=== PATIENT | male | born 1985 | race Caucasian/White ===

== ENCOUNTER 2017-11-30 05:46 | Inpatient (IN) | payer MEDICAID ==
[2017-11-30] MEDS ORDERED: Dextrose 5%-Lactated Ringers 1,000 ML IV SCH (07:30)
[2017-11-30] MEDS ORDERED: Pantoprazole 40 MG Vial IVPUSH SCH (07:30)
--- NOTE | 2017-11-30 08:17 | PCM.HP ---
H&P History of Present Illness - General Date of Service: 11/30/17 Admit Problem/Dx: Admission Diagnosis/Problem Admission Diagnosis/Problem Abdominal pain Source of Information: Patient History Limitations: Reports: No Limitations - History of Present Illness Initial Comments - Free Text/Narative: Pastor states that he developed postprandial abdominal pain starting on Friday. Pain gradually increased and went into the ED last night. [facility] his primary procedure. Pastor has been taking all of his vitamins and supplements. Recently got and moved to [place] and it has been about 1 year since he had his vitamin levels checked. Most recent surgery was in 2016 for a bowel obstruction and internal hernia. Operative Report from [place] is coming. Onset of Symptoms: Reports: Today Location: Reports: Abdomen (left upper quadrant ) Quality: Reports: Ache, Pressure, Throbbing Severity: Severe Improves with: Reports: Medication (Dilaudid when he got to the ED ) Context: Reports: Sick Contact Associated Symptoms: Reports: Loss of Appetite, Nausea/Vomiting Abdominal Pain Score (Numeric/FACES): 7 - Related Data Allergies/Adverse Reactions: Allergies Allergy/AdvReac Type Severity Reaction Status Date / Time No Known Allergies Allergy Verified 11/30/17 05:52 Home Medications: Home Meds Calcium Citrate 2 tab PO DAILY 11/30/17 [History] Cyanocobalamin (Vitamin B12) [Vitamin B12] 1 tab PO DAILY 11/30/17 [History] Ferrous Sulfate [Iron] 1 tab PO DAILY 11/30/17 [History] Multivitamin [Multivitamins] 1 tab PO DAILY 11/30/17 [History] Vitamin B Complex & Vit C No.4 [Super B Complex] 1 tab PO DAILY 11/30/17 [ History] Past Medical History Cardiovascular History: Reports: Hypertension Respiratory History: Reports: Asthma Gastrointestinal History: Reports: Bowel Obstruction, Chronic Diarrhea Other Gastrointestinal History: hx of Gastric Bypass; wt loss 175 pounds Genitourinary History: Reports: Renal Calculus Musculoskeletal History: Reports: Fracture Neurological History: Reports: Concussion, Head Trauma, Speech Problems, Vertigo Psychiatric History: Reports: Addiction, Anxiety, Eating Disorders, Psych Hospitalization(s), PTSD, Suicide Attempt, Suicidal Ideation Other Psychiatric History: night terrors, past suicide attempt Endocrine/Metabolic History: Reports: Obesity/BMI 30+ Hematologic History: Reports: B12 Deficiency - Past Surgical History HEENT Surgical History: Reports: Adenoidectomy, Tonsillectomy Other HEENT Surgeries/Procedures: [place] tooth pulled 10/10/14 GI Surgical History: Reports: Bariatric Procedure, Other (See Below) Other GI Surgeries/Procedures: revision 2016 in [facility] Male Surgical History: Reports: Lithotripsy (ESWL), Renal Calculus Social & Family History - Family History Family Medical History: Noncontributory Oncologic: Reports: Colon - Tobacco Use Smoking Status *Q: Former Smoker Years of Tobacco use: 19 Used Tobacco, but Quit: No Second Hand Smoke Exposure: Yes - Caffeine Use Caffeine Use: Reports: Coffee, Tea - Recreational Drug Use Recreational Drug Use: No - Living Situation & Occupation Living situation: Reports: Single, Other Occupation: Employed H&P Review of Systems - Review of Systems: Review Of Systems: ROS reveals no pertinent complaints other than HPI. Exam - Exam Exam: See Below - Vital Signs Vital Signs: Last Vital Signs Temp 96.3 F 11/30/17 07:27 Pulse 69 11/30/17 07:27 Resp 16 11/30/17 07:27 BP 119/86 11/30/17 07:27 Pulse Ox 99 11/30/17 07:27 Weight: 203 lb - Exam Quality Assessment: DVT Prophylaxis General: Alert, Moderate Distress HEENT: PERRLA Neck: Supple, Trachea Midline Lungs: Clear to Auscultation, Normal Respiratory Effort Cardiovascular: Regular Rate, Regular Rhythm GI/Abdominal Exam: Guarding, Tender (in right and left upper quadrants) (Male) Exam: Deferred Rectal (Males) Exam: Deferred Back Exam: Normal Inspection, Full Range of Motion Extremities: Normal Inspection Skin: Warm, Dry, Intact Neurological: Cranial Nerves Intact, Reflexes Equal Bilateral Neuro Extensive - Mental Status: Alert, Oriented x3, Normal Mood/Affect, Memory Intact Neuro Extensive - Motor, Sensory, Reflexes: CN II-XII Intact, Normal Reflexes Psychiatric: Alert, Normal Affect - Problem List (1) Partial small bowel obstruction SNOMED Code(s): 037486899 ICD Code: K56.600 - PARTIAL INTESTINAL OBSTRUCTION, UNSPECIFIED TO CAUSE Status: Acute Current Visit: Yes Problem List Initiated/Reviewed/Updated: Yes Orders Last 24hrs: Active Orders 24 hr Category Date Time Status Patient Status [ADT] Routine ADT 11/30/17 07:06 Active Ondansetron [Zofran] Med 11/30/17 07:20 Active 4 mg IVPUSH Q4H PRN cefOXitin [Mefoxin] 2 gm Med 11/30/17 08:02 Ordered Sodium Chloride 0.9% [Normal Saline] 50 ml IV ONETIME Medication Orders Cefoxitin Sodium 2 gm/ Sodium (Chloride) 50 mls @ 100 mls/hr IV ONETIME ONE Stop: 11/30/17 08:31 Ondansetron HCl (Zofran) 4 mg IVPUSH Q4H PRN PRN Reason: Nausea/Vomiting Assessment/Plan Comment:: Admit to Inpatient Discussed case with Rod Arteaga MD See copy of his orders Leonela Morrell 11/30/17
[2017-11-30] MEDS ORDERED: Lactated Ringers 1,000 ML IV SCH (08:30)
[2017-11-30] MEDS ORDERED: Succinylcholine 200 MG/10 ML MDV ONE (09:08)
[2017-11-30] MEDS ORDERED: Dexamethasone 4 MG/ML SDV ONE (09:08)
[2017-11-30] MEDS ORDERED: Ondansetron 4 MG/2 ML SDV ONE (09:08)
[2017-11-30] MEDS ORDERED: Propofol 200 MG/20 ML SDV ONE (09:08)
[2017-11-30] MEDS ORDERED: Glycopyrrolate 0.2 MG/ML 5 ML MDV ONE (09:08)
[2017-11-30] MEDS ORDERED: Rocuronium 50 MG/5 ML Vial ONE (09:08)
[2017-11-30] MEDS ORDERED: Neostigmine Methylsulfate 1 MG/ML 5 ML Syringe ONE (09:08)
[2017-11-30] MEDS ORDERED: fentaNYL 250 MCG/5 ML SDV ONE ×2 (09:08)
[2017-11-30] MEDS ORDERED: HYDROmorphone 1 MG/ML Syringe IVPUSH ONE (10:12)
[2017-11-30] MEDS ORDERED: Naloxone 0.4 MG/ML SDV IVPUSH PRN (10:21)
[2017-11-30] MEDS: HYDROmorphone/Normal Saline 15 MG/30 ML PCA IV PRN (11:00)
[2017-11-30] MEDS: cefOXitin 2 GM in Sodium Chloride 0.9% 50 ML IV ONE ×2 (11:13→11:21)
[2017-11-30] MEDS: D5 1/2 NS w/ 20 mEq/L KCl 1,000 ML IV SCH ×2 (11:28→19:36)
[2017-11-30] MEDS: Ondansetron 4 MG/2 ML SDV IVPUSH PRN (19:37)
[2017-12-01] MEDS: D5 1/2 NS w/ 20 mEq/L KCl 1,000 ML IV SCH ×3 (03:06→21:16)
[2017-12-01] MEDS: HYDROmorphone/Normal Saline 15 MG/30 ML PCA IV PRN ×2 (04:05→22:10)
--- NOTE | 2017-12-01 08:04 | PN ---
DATE OF SERVICE: 12/01/2017 SUBJECTIVE: The patient is postop day one. He had a laparotomy yesterday. He reports his pain is controlled. He has been n.p.o. requesting to have something to eat or drink. He has been up ambulating. Ledezma catheter put out 4100 of a clear reuben urine. REVIEW OF SYSTEMS: Remainder of review of systems is negative for any pertinent positives and negatives. OBJECTIVE: GENERAL: The patient is a 32-year-old male. VITAL SIGNS: TPR is 97.3, 72, 16, blood pressure is 113/78. HEENT: Negative. NECK: Supple. HEART: Regular rate and rhythm. LUNGS: Clear. ABDOMEN: Dressings dry and intact. Abdominal binder is on. EXTREMITIES: Without peripheral edema. ASSESSMENT: Exploratory laparotomy, status post Luis Fernando-en-Y gastric bypass surgery. PLAN: Discontinue Ledzema catheter dressing off, may shower. Consult the [facility] step 3 gastric bypass diet. Tylenol 1000 mg q.i.d. to start today. Dulcolax 10 mg p.o. b.i.d. and to discontinue after patient having a bowel movement, Celebrex 200 mg p.o. daily, Colace 100 mg p.o. b.i.d., magnesium sulfate 2 g IV q.6 hours x72 hours, D5 half normal saline with 20 mEq KCl decreased to 100 mL per hour at noon today. Good pulmonary toilet. We will evaluate p.r.n. or in a.m. Leonela Sales PA-C /[id number]
--- NOTE | 2017-12-01 08:10 | OR ---
DATE OF PROCEDURE: 11/30/2017 PREOPERATIVE DIAGNOSES: 1. Status post Luis Fernando-en-Y gastric bypass. 2. Small bowel obstruction. POSTOPERATIVE DIAGNOSIS: 1. Status post Luis Fernando-en-Y gastric bypass. 2. Alcazar internal hernia. PROCEDURE PERFORMED: Exploratory laparotomy, reduction of Alcazar internal hernia, and closure of the mesenteric defect. ANESTHESIA: General endotracheal. INDICATION: This 32-year-old white male is a few years status post Luis Fernando-en-Y gastric bypass. About a year and a half ago, he had an internal hernia, which was treated in [place] with reduction and closure. Four days ago, he presented to the emergency room in [place], [place], where he lives, with studies suggestive apparently of some edema, but it was felt that everything should resolve. He was released from the emergency room and went home. He said pain developed and became worse causing him again to come to the emergency room last night at about 2300 hours. CAT scan at this time shows mesenteric swirling and suggestion of an internal hernia. He was referred up here, as a former bariatric patient. I counseled him for exploratory laparotomy with repair or removal of any damaged or diseased organs or tissues, and he gave us informed consent to proceed. DESCRIPTION OF PROCEDURE: After adequate general endotracheal anesthesia was obtained, a Ledezma catheter was placed. The leg compression stockings were in place and used during the entire procedure. A time-out was held. An upper midline incision was made through his existing scar. We extended this a little inferiorly into [place] tissue. This was carried deep using Bovie cautery to the fascia. The fascia was incised inferiorly and the underlying peritoneum was elevated and incised to enter the abdomen. There were no adhesions to the anterior abdominal wall. We opened the fascia to the length of the skin incision using Bovie cautery while protecting underlying structures. We delivered the small bowel up out of the abdomen and discovered a Alcazar hernia with essentially his entire small bowel going underneath the Luis Fernando-en-Y limb. This was all reduced back into the abdomen. The hernia defect was then closed with running stitches of 2-0 silk. All looked well. The abdomen was irrigated and suctioned dry. The fascia was closed with a running stitch of #2 Vicryl. The incision was again irrigated and suctioned dry. Skin unique were placed to approximate the skin. A sterile dressing was applied. The anesthesia was reversed. He was extubated and brought to the recovery room in good condition. Rod Arteaga MD /[id number]
[2017-12-01] MEDS: Bisacodyl 5 MG Tab PO SCH ×2 (08:29→21:16)
[2017-12-01] MEDS: Celecoxib 200 MG Cap PO SCH (08:29)
[2017-12-01] MEDS: Acetaminophen 500 MG Tab PO SCH ×3 (08:29→21:16)
[2017-12-01] MEDS: Magnesium Sulfate/Water 2 GM in Premix Bag 1 BAG IV SCH ×3 (08:30→21:16)
[2017-12-01] MEDS: Docusate Sodium 100 MG Cap PO SCH ×2 (08:30→21:16)
[2017-12-01] MEDS: Enoxaparin 40 MG/0.4 ML Syringe SUBCUT SCH (18:34)
[2017-12-02] MEDS: Magnesium Sulfate/Water 2 GM in Premix Bag 1 BAG IV SCH ×3 (02:50→14:20)
[2017-12-02] MEDS: Acetaminophen 500 MG Tab PO SCH ×4 (02:50→19:42)
[2017-12-02] MEDS ORDERED: Ondansetron 4 MG Tab.DIS PO PRN (07:05)
[2017-12-02] MEDS: HYDROmorphone 2 MG Tab PO PRN ×4 (07:55→22:15)
[2017-12-02] MEDS: Bisacodyl 5 MG Tab PO SCH (08:03)
[2017-12-02] MEDS: Docusate Sodium 100 MG Cap PO SCH ×2 (08:03→21:24)
[2017-12-02] MEDS: Celecoxib 200 MG Cap PO SCH (08:04)
--- NOTE | 2017-12-02 08:17 | PN ---
DATE OF SERVICE: 12/02/2017 SUBJECTIVE: The patient is postoperative day 2. Vital signs have been stable. He has been up ambulating. Pain is controlled. Oral intake 1460. Urine output 1725. He has been voiding without difficulty after his Ledezma catheter has been removed. REVIEW OF SYSTEMS: Remainder of review of systems is negative for any pertinent positives and negatives. OBJECTIVE: GENERAL: The patient is a 32-year-old male. VITAL SIGNS: TPR 96.3, 57, 14, blood pressure 122/67. HEENT: Negative. NECK: Supple. HEART: Regular rate and rhythm. LUNGS: Clear. ABDOMEN: Dressings dry and intact. Abdominal binder is on. EXTREMITIES: Without peripheral edema. ASSESSMENT: Exploratory laparotomy, reduction of Alcazar internal hernia and closure of mesenteric defect for status post Luis Fernando-en-Y gastric bypass surgery and Nieves internal hernia. PLAN: 1. 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 Dilaudid 2 mg 1 to 2 every 4 hours p.r.n. pain. Good pulmonary toilet. 2. We will evaluate p.r.n. or in a.m. 3. Plan discharge in a.m. Leonela Sales PA-C /[id number]
[2017-12-02] MEDS ORDERED: Cyanocobalamin (Vitamin B12) 1,000 MCG/ML SDV IM ONE (08:30)
[2017-12-02] MEDS: Ondansetron 4 MG/2 ML SDV IVPUSH PRN (12:01)
[2017-12-02] MEDS ORDERED: Bisacodyl 10 MG Supp RECTAL SCH (16:05)
[2017-12-02] MEDS: Enoxaparin 40 MG/0.4 ML Syringe SUBCUT SCH (18:12)
[2017-12-02] MEDS ORDERED: hydrOXYzine HCl 100 MG/2 ML SDV IM PRN (21:35)
[2017-12-02] MEDS ORDERED: hydrOXYzine HCl 25 MG Tab PO PRN (21:36)
[2017-12-03] MEDS: Acetaminophen 500 MG Tab PO SCH ×2 (02:56→08:47)
[2017-12-03] MEDS: HYDROmorphone 2 MG Tab PO PRN (02:56)
--- NOTE | 2017-12-03 08:22 | DISCH ---
ADMISSION DIAGNOSES: Abdominal pain status post Luis Fernando-en-Y gastric bypass surgery, unspecified surgical malabsorption, B12 deficiency, history of alcohol abuse, history of drug abuse, depression disorder, impaired glucose tolerance, anxiety, dysthymia and PTSD. DISCHARGE DIAGNOSES: Exploratory laparotomy, reduction of Alcazar internal hernia and closure of mesenteric defect for SP Luis Fernando-en-Y gastric bypass surgery and Alcazar internal hernia. Date of surgery 11/30/2017. Surgeon, Rod Arteaga MD. HISTORY: Pastor Ham is a 32-year-old male who presented to [facility] ED for abdominal pain. He was found to have a partial small bowel obstruction and was transferred by ambulance to [facility]. After preoperative evaluation and discussion of possible risks and possible complications, he wished to proceed with surgical procedure. HOSPITAL COURSE: Pastor had his surgery on 11/30/2017. He had no operative complications. On postoperative day #1, he was started on step-3 gastric bypass diet. His Ledezma catheter was discontinued. He was started on bowel stimulation. Magnesium was replaced. 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 He was started on Dilaudid. He did have a bowel movement. Pain was controlled. Activity was good. Received dietary instruction. He was able to be discharged to home on 12/03/2017. PHYSICAL EXAMINATION: GENERAL: Pastor Ham is a 32-year-old male. VITAL SIGNS: Height is 5 feet 11 inches. Weight is 203 pounds. BMI is 28. TPR is 95.2, 54, 14, and blood pressure 118/71. HEENT: Negative. NECK: Supple. HEART: Regular rate and rhythm. LUNGS: Clear. ABDOMEN: Dada intact. Abdominal binder is on. EXTREMITIES: Without peripheral edema. DISPOSITION: Discharged to home. CONDITION: Stable and improving. FOLLOWUP: Followup appointment on 12/10/2017 at 1 p.m. HOME MEDICATIONS: 1. Tylenol 1000 mg oral q.6 hours p.r.n. pain. 2. Celebrex 200 mg p.o. daily #14. 3. Colace 100 mg oral b.i.d., #100. 4. Dilaudid 2 mg 1 to 2 q.4 hours p.r.n. pain #30. 5. Increase multivitamin to b.i.d. 6. He is to continue his home medications which include ferrous sulfate 1 tablet daily and B complex 1 tablet oral daily. Vitamins will be reviewed at the time of his first postoperative appointment. DISCHARGE DIET: Diet after discharge, step-3 gastric bypass diet for 2 weeks. Drink 8 to 10 glasses of water a day. ACTIVITY: No lifting greater than 10 pounds for 6 weeks. Other activity, walk at least 6 times a day, distance and time as tolerated. Driving, do not drive while on narcotic pain medication. Shower/bathing, may shower. DISCHARGE INSTRUCTIONS: Notify provider if any fever, pain, nausea, vomiting. Keep site clean and dry. Wear abdominal binder for 6 weeks and then as tolerated. Use incentive spirometer 10 times every hour while awake.
[2017-12-03 08:46] VITALS: BP 115/75
[2017-12-03] MEDS: Celecoxib 200 MG Cap PO SCH (08:47)
[2017-12-03] MEDS: Docusate Sodium 100 MG Cap PO SCH (08:47)
== END 2017-12-03 10:00 | disposition home or self-care (01) | DRG 354 ==
LOC: JP.ED 05:46 → JP.2SS 07:06
PROVIDERS: ADMIT Surgery; ATTEND Surgery
PROC: 0DQV0ZZ Repair Mesentery, Open Approach (ICD-10-PCS; principal; 2017-11-30)
PROC: 0WQF0ZZ Repair Abdominal Wall, Open Approach (ICD-10-PCS; 2017-11-30)
DX: K46.9 Unspecified abdominal hernia without obstruction or gangrene (principal); K56.600 Partial intestinal obstruction, unspecified as to cause; K91.2 Postsurgical malabsorption, not elsewhere classified; Z98.84 Bariatric surgery status; Z98.0 Intestinal bypass and anastomosis status; E53.8 Deficiency of other specified B group vitamins; Z87.891 Personal history of nicotine dependence; F10.11 Alcohol abuse, in remission; F19.10 Other psychoactive substance abuse, uncomplicated; F32.9 Major depressive disorder, single episode, unspecified; F41.9 Anxiety disorder, unspecified; R73.01 Impaired fasting glucose; F34.1 Dysthymic disorder; F43.10 Post-traumatic stress disorder, unspecified; Z91.5 Personal history of self-harm; Z86.79 Personal history of other diseases of the circulatory system; Z87.09 Personal history of other diseases of the respiratory system
CPT/HCPCS: 36415; 80048; 80053; 82306; 82525; 82607; 82728; 82746; 83735; 84100; 84443; 84590; 84630; 85027; 94762; 99285; A9270-GY; J0330; J0694; J1100; J1170; J1650; J2405; J2704; J2710; J3010; J3420; J3475; J3480; J3490; J7050

== ENCOUNTER 2020-07-25 19:54 | Emergency (ER) | payer BC, MEDICAID ==
[2020-07-25] MEDS ORDERED: Acetaminophen 650 MG Supp RECTAL ONE (20:11)
[2020-07-25] MEDS ORDERED: Lactated Ringers 1,000 ML IV ONE (20:11)
[2020-07-25] MEDS ORDERED: Ondansetron 4 MG/2 ML SDV IVPUSH ONE (20:12)
[2020-07-25] MEDS ORDERED: HYDROmorphone 0.5 MG/0.5 ML Syringe IVPUSH ONE (20:16)
--- NOTE | 2020-07-25 20:21 | EDM.PDOC ---
ED HPI GENERAL MEDICAL PROBLEM - General Chief Complaint: General Stated Complaint: PERSONAL Time Seen by Provider: 07/25/20 20:15 Source of Information: Reports: Patient, Old Records - History of Present Illness INITIAL COMMENTS - FREE TEXT/NARRATIVE: 35 yo male recently moved back to [place] after being away for some years. He does not yet have a primary care provider. Today he is most concerned with L ear pain and a reddish lump on the lateral side of his L knee. His girlfriend had the same thing recently. It recently drained. Onset: Gradual Duration: Day(s): Quality: Reports: Dull Severity: Mild Improves with: Reports: None Worsens with: Reports: None Context: Reports: Other (See HPI) Associated Symptoms: Reports: Other (L ear pain) Treatments PROCUREMENT INTERN: Reports: Other (see below) (none) Generalized Pain Score (Numeric/FACES): 8 - Related Data Allergies Allergy/AdvReac Type Severity Reaction Status Date / Time No Known Allergies Allergy Verified 11/30/17 05:52 Home Meds: Home Meds Calcium Citrate 2 tab PO DAILY 11/30/17 [History] Cyanocobalamin (Vitamin B12) [Vitamin B12] 1 tab PO DAILY 11/30/17 [History] Ferrous Sulfate [Iron] 1 tab PO DAILY 11/30/17 [History] Vitamin B Complex Vit C No.4 [Super B Complex] 1 tab PO DAILY 11/30/17 [History] Acetaminophen [Tylenol Extra Strength] 1,000 mg PO Q6H tablet 12/03/17 [Rx] Celecoxib [CeleBREX] 200 mg PO DAILY #14 cap 12/03/17 [Rx] Docusate Sodium [Colace] 100 mg PO BID #100 cap 12/03/17 [Rx] HYDROmorphone [Dilaudid] 2 - 4 mg PO Q4H PRN #30 tablet 12/03/17 [Rx] Multivitamin [Multivitamins] 1 tab PO BID #0 12/03/17 [Rx] Past Medical History Cardiovascular History: Reports: Hypertension Respiratory History: Reports: Asthma Gastrointestinal History: Reports: Bowel Obstruction, Chronic Diarrhea Other Gastrointestinal History: hx of Gastric Bypass; wt loss 175 pounds Genitourinary History: Reports: Renal Calculus Musculoskeletal History: Reports: Fracture Neurological History: Reports: Concussion, Head Trauma, Speech Problems, Vertigo Psychiatric History: Reports: Addiction, Anxiety, Eating Disorders, Psych Hospitalization(s), PTSD, Suicide Attempt, Suicidal Ideation Other Psychiatric History: night terrors, past suicide attempt Endocrine/Metabolic History: Reports: Obesity/BMI 30+ Hematologic History: Reports: B12 Deficiency - Past Surgical History HEENT Surgical History: Reports: Adenoidectomy, Tonsillectomy Other HEENT Surgeries/Procedures: [place] tooth pulled 10/10/14 GI Surgical History: Reports: Bariatric Procedure, Other (See Below) Other GI Surgeries/Procedures: revision 2016 in [facility] Male Surgical History: Reports: Lithotripsy (ESWL), Renal Calculus Social & Family History - Family History Family Medical History: No Pertinent Family History Oncologic: Reports: Colon - Caffeine Use Caffeine Use: Reports: Coffee, Tea - Living Situation & Occupation Living situation: Reports: Single, Other Occupation: Employed ED ROS GENERAL - Review of Systems Review Of Systems: See Below Constitutional: Reports: No Symptoms HEENT: Reports: Ear Pain (left) Respiratory: Reports: No Symptoms Cardiovascular: Reports: No Symptoms GI/Abdominal: Reports: No Symptoms : Reports: No Symptoms Musculoskeletal: Reports: No Symptoms Skin: Reports: Lumps (reddish lump to the lateral side of his L knee) Neurological: Reports: No Symptoms ED EXAM, GENERAL - Physical Exam Exam: See Below Exam Limited By: No Limitations General Appearance: Alert, WD/WN, No Apparent Distress Eye Exam: Bilateral Eye: Normal Inspection Ears: Normal External Exam, Normal Canal, Hearing Grossly Normal, Normal TMs. No: Hearing Loss Ear Exam: Bilateral Ear: Auricle Normal, Canal Normal, TM normal Nose: Normal Inspection, No Blood Throat/Mouth: Normal Lips, Normal Voice, No Airway Compromise Head: Atraumatic, Normocephalic Neck: Normal Inspection Respiratory/Chest: No Respiratory Distress, No Accessory Muscle Use Neurological: Alert, Oriented, CN II-XII Intact, No Motor/Sensory Deficits Psychiatric: Normal Affect, Normal Mood Skin Exam: Warm, Dry, Intact, No Rash, Erythema (there is a reddish lesion about 2.5 cm in diameter to the lateral side of his L knee. It is slightly indurated. Not hot to touch. Not fluctuant. No current drainage. ). No: Increased Warmth Course - Vital Signs Last Recorded V/S: Last Vital Signs Temp 36.2 C 07/25/20 20:32 Pulse 107 H 07/25/20 20:32 Resp 16 07/25/20 20:32 BP 146/104 H 07/25/20 20:32 Pulse Ox 96 07/25/20 20:32 - Orders/Labs/Meds Orders: Active Orders 24 hr Category Date Time Status Lactated Ringers [Ringers, Lactated] 1,000 ml Med 07/25/20 20:11 Active IV BOLUS Medication Orders Lactated Ringer's (Ringers, Lactated) 1,000 mls @ 1,000 mls/hr IV BOLUS ONE Stop: 07/25/20 21:10 Meds: Medications Generic Name Dose Route Start Last Admin Trade Name Freq PRN Reason Stop Dose Admin Lactated Ringer's 1,000 mls @ 1,000 mls/hr 07/25/20 20:11 Ringers, Lactated IV 07/25/20 21:10 BOLUS ONE Discontinued Medications Generic Name Dose Route Start Last Admin Trade Name Freq PRN Reason Stop Dose Admin Acetaminophen 650 mg 07/25/20 20:11 Acetaminophen 650 Mg Supp RECTAL 07/25/20 20:12 NOW ONE Hydromorphone HCl 0.5 mg 07/25/20 20:16 Hydromorphone 0.5 Mg/0.5 Ml Syringe IVPUSH 07/25/20 20:17 ONETIME ONE Ondansetron HCl 4 mg 07/25/20 20:12 Ondansetron 4 Mg/2 Ml Sdv IVPUSH 07/25/20 20:13 ONETIME ONE Departure - Departure Time of Disposition: 21:01 Disposition: Home, Self-Care 01 Condition: Good Clinical Impression: Skin infection - Discharge Information *PRESCRIPTION DRUG MONITORING PROGRAM REVIEWED*: Not Applicable *COPY OF PRESCRIPTION DRUG MONITORING REPORT IN PATIENT HERMINIO: Not Applicable Referrals: PCP,None [Primary Care Provider] - Forms: ED Department Discharge Additional Instructions: Your skin lesion on your left knee may have been MRSA. It looks like you are successfully healing it without antibiotics. Applying moist heat and keeping it clean with soap and water will further speed resolution. Recheck if it worsens. Get established with a personal provider in the clinic soon. Sepsis Event Note (ED) - Focused Exam Vital Signs: Vital Signs Temp Pulse Resp BP Pulse Ox 07/25/20 20:32 36.2 C 107 H 16 146/104 H 96 07/25/20 20:29 36.2 C 107 H 16 146/104 H 96 - My Orders Last 24 Hours: My Active Orders 07/25/20 20:11 Lactated Ringers [Ringers, Lactated] 1,000 ml IV BOLUS - Assessment/Plan Last 24 Hours: My Active Orders 07/25/20 20:11 Lactated Ringers [Ringers, Lactated] 1,000 ml IV BOLUS
[2020-07-25 20:31] VITALS: BP 146/104; PULSE 107
== END 2020-07-25 21:09 | disposition home or self-care (01) ==
LOC: JP.ED 19:54
DX: L08.9 Local infection of the skin and subcutaneous tissue, unspecified (principal); I10 Essential (primary) hypertension; J45.909 Unspecified asthma, uncomplicated; E66.9 Obesity, unspecified; Z68.30 Body mass index [BMI] 30.0-30.9, adult; Z79.899 Other long term (current) drug therapy
CPT/HCPCS: 99282; 99283

== ENCOUNTER 2020-08-03 15:51 | Emergency (ER) | payer MEDICAID ==
[2020-08-03 16:11] VITALS: BP 138/91; PULSE 98
--- NOTE | 2020-08-03 16:54 | EDM.PDOCBH ---
ED HPI GENERAL MEDICAL PROBLEM - General Chief Complaint: Drug or Alcohol Abuse Stated Complaint: ASSESSMENT TO ADMIT TO DETOX Time Seen by Provider: 08/03/20 16:15 Source of Information: Reports: Patient, Family History Limitations: Reports: No Limitations - History of Present Illness INITIAL COMMENTS - FREE TEXT/NARRATIVE: 35-year-old male with chronic alcoholism, presents for medical clearance to detox out at [facility]. He has already called [facility] and they agreed to take him if he was cleared. He has no specific complaints. He does not remember the last time he went a day without drinking. His last alcohol was just prior to coming in. He does not appear to be overly intoxicated. Onset: Unknown/Unsure Duration: Chronic Associated Symptoms: Reports: Other (Feeling somewhat anxious but no other symptoms) - Related Data Allergies Allergy/AdvReac Type Severity Reaction Status Date / Time No Known Allergies Allergy Verified 08/03/20 16:11 Home Meds: Home Meds NK [No Known Home Meds] 08/03/20 [History] Past Medical History Cardiovascular History: Reports: Hypertension Respiratory History: Reports: Asthma Gastrointestinal History: Reports: Bowel Obstruction, Chronic Diarrhea Other Gastrointestinal History: hx of Gastric Bypass; wt loss 175 pounds Genitourinary History: Reports: Renal Calculus Musculoskeletal History: Reports: Fracture Neurological History: Reports: Concussion, Head Trauma, Speech Problems, Vertigo Psychiatric History: Reports: Addiction, Anxiety, Eating Disorders, Psych Hospitalization(s), PTSD, Suicide Attempt, Suicidal Ideation Other Psychiatric History: night terrors, past suicide attempt Endocrine/Metabolic History: Reports: Obesity/BMI 30+ Hematologic History: Reports: B12 Deficiency - Infectious Disease History Infectious Disease History: Reports: Chicken Pox - Past Surgical History HEENT Surgical History: Reports: Adenoidectomy, Tonsillectomy Other HEENT Surgeries/Procedures: [place] tooth pulled 10/10/14 GI Surgical History: Reports: Bariatric Procedure, Other (See Below) Other GI Surgeries/Procedures: revision 2016 in [facility] Male Surgical History: Reports: Lithotripsy (ESWL), Renal Calculus Social & Family History - Family History Family Medical History: No Pertinent Family History Oncologic: Reports: Colon - Tobacco Use Tobacco Use Status *Q: Never Tobacco User - Caffeine Use Caffeine Use: Reports: None - Alcohol Use Days Per Week of Alcohol Use: 7 Number of Drinks Per Day: 8 Total Drinks Per Week: 56 Date of Last Drink: 08/03/20 - Recreational Drug Use Recreational Drug Use: Yes Recreational Drug Type: Reports: Methamphetamine Recreational Drug Use Frequency: Daily - Living Situation & Occupation Living situation: Reports: Single, Other Occupation: Employed ED ROS GENERAL - Review of Systems Review Of Systems: See Below Constitutional: Denies: Fever, Chills HEENT: Reports: No Symptoms Respiratory: Denies: Shortness of Breath, Cough Cardiovascular: Denies: Chest Pain, Palpitations GI/Abdominal: Denies: Abdominal Pain, Diarrhea, Nausea, Vomiting Skin: Reports: No Symptoms Neurological: Denies: Headache Psychiatric: Reports: Anxiety ED EXAM, BEHAVIORAL HEALTH - Physical Exam Exam: See Below Exam Limited By: No Limitations General Appearance: Alert, No Apparent Distress, Other (Very cooperative) Eye Exam: Bilateral Eye: Normal Inspection Head: Atraumatic Neck: Non-Tender Respiratory/Chest: Lungs Clear Cardiovascular: Regular Rate, Rhythm. No: Tachycardia GI/Abdominal: Non-Tender Extremities: Normal Inspection Neurological: Alert, Oriented x 3 Psychiatric: Flat Affect Skin Exam: Warm, Dry COURSE, BEHAVIORAL HEALTH COMP - Course Vital Signs: Last Vital Signs Temp 97.3 F 08/03/20 16:06 Pulse 98 08/03/20 16:06 Resp 18 08/03/20 16:06 BP 138/91 H 08/03/20 16:06 Pulse Ox 97 08/03/20 16:06 Orders, Labs, Meds: Laboratory Tests 08/03/20 08/03/20 08/03/20 Range/Units 16:22 16:22 16:30 Urine Opiates Screen Negative (NEGATIVE) Ur Oxycodone Screen Negative (NEGATIVE) Urine Methadone Screen Negative (NEGATIVE) Ur Propoxyphene Screen Negative (NEGATIVE) Ur Barbiturates Screen Negative (NEGATIVE) Ur Tricyclics Screen Negative (NEGATIVE) Ur Phencyclidine Scrn Negative (NEGATIVE) Ur Amphetamine Screen Presumptive positive H (NEGATIVE) U Methamphetamines Scrn Presumptive positive H (NEGATIVE) Urine MDMA Screen Presumptive positive H (NEGATIVE) U Benzodiazepines Scrn Negative (NEGATIVE) U Cocaine Metab Screen Negative (NEGATIVE) U Marijuana (THC) Screen Negative (NEGATIVE) Ethyl Alcohol 190 mg/dL SARS CoV-2 RNA Rapid JEMMA Negative Re-Assessment/Re-Exam: EtOH, urine drug screen and Covid were obtained. Plans to have the patient transferred to [facility] by his mother who accompanies him. EtOH was 0.190, urine drug screen was positive for methamphetamine. Otherwise patient was stable and willing to go to detox, he will be transferred by his mom. Departure - Departure Time of Disposition: 17:35 Disposition: DC/Tfer to Other 70 Clinical Impression: Polysubstance abuse - Discharge Information Instructions: Substance Use Disorder Referrals: PCP,None [Primary Care Provider] - Forms: ED Department Discharge Care Plan Goals: Go through detox as planned and follow-up post detox instructions or seek further treatment to avoid further abuse of alcohol and other substances. Sepsis Event Note (ED) - Evaluation Sepsis Screening Result: No Definite Risk
== END 2020-08-03 17:35 | disposition other institution (70) ==
LOC: JP.ED 15:51
DX: F19.10 Other psychoactive substance abuse, uncomplicated (principal); I10 Essential (primary) hypertension; E66.9 Obesity, unspecified; Z68.30 Body mass index [BMI] 30.0-30.9, adult; Z20.822 Contact with and (suspected) exposure to COVID-19
CPT/HCPCS: 36415; 80305-QW; 80307; 99284; U0002

== ENCOUNTER 2020-08-14 13:58 | Emergency (ER) | payer MEDICAID ==
[2020-08-14 14:24] VITALS: BP 128/77; PULSE 101
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
== END 2020-08-14 15:05 | disposition home or self-care (01) ==
LOC: JP.ED 13:58
DX: K62.5 Hemorrhage of anus and rectum (principal); R30.0 Dysuria; J45.909 Unspecified asthma, uncomplicated; I10 Essential (primary) hypertension; E66.9 Obesity, unspecified; Z68.29 Body mass index [BMI] 29.0-29.9, adult
CPT/HCPCS: 36415; 80048; 80305-QW; 81001; 85025; 85651; 99283

== ENCOUNTER 2020-08-30 13:38 | Emergency (ER) | payer MEDICAID ==
[2020-08-30 13:49] VITALS: BP 120/75; PULSE 104
== END 2020-08-30 14:05 | disposition left against medical advice (07) ==
LOC: JP.ED 13:38
DX: Z53.21 Procedure and treatment not carried out due to patient leaving prior to being seen by health care provider (principal)

== ENCOUNTER 2020-09-01 21:12 | Emergency (ER) | payer MEDICAID ==
[2020-09-01] MEDS ORDERED: Etomidate 2 MG/ML 10 ML SDV IVPUSH ONE (21:21)
[2020-09-01] MEDS ORDERED: Rocuronium 50 MG/5 ML Vial IVPUSH ONE (21:21)
[2020-09-01] MEDS ORDERED: Sodium Chloride 0.9% 10 ML Syringe FLUSH PRN (21:23)
[2020-09-01] MEDS ORDERED: Rocuronium 50 MG/5 ML Vial ONE (21:23)
[2020-09-01] MEDS ORDERED: Etomidate 2 MG/ML 10 ML SDV ONE (21:26)
[2020-09-01] MEDS ORDERED: propofoL 100 ML ONE (21:40)
--- NOTE | 2020-09-01 21:49 | EDM.PDOC ---
ED HPI GENERAL MEDICAL PROBLEM - General Chief Complaint: Drug or Alcohol Abuse Stated Complaint: EVAL Time Seen by Provider: 09/01/20 21:14 Source of Information: Reports: Patient History Limitations: Reports: Altered Mental Status (Patient is unresponsive) - History of Present Illness INITIAL COMMENTS - FREE TEXT/NARRATIVE: Primo is a 35-year-old male who collapsed outside of the emergency room. A rapid response was called. The patient was apparently being brought in by a friend for evaluation of intoxication, ingestion of nortriptyline, and ingestion of methamphetamine. The patient has a longstanding history of polysubstance abuse including alcohol, opiates, methamphetamine, and today also took an unknown amount of nortriptyline. The patient again is unresponsive and not answering questions appropriately. He was brought back to stabilization room 9 emergently. Unfortunately, her lab is experiencing failure of the analyzer making evaluation of the patient near impossible. With this in mind we initiated rapid transfer of the patient to [facility]. - Related Data Allergies Allergy/AdvReac Type Severity Reaction Status Date / Time No Known Allergies Allergy Verified 08/30/20 13:50 Home Meds: Home Meds Sulfamethoxazole/Trimethoprim [Sulfamethoxazole-Tmp Ss Tablet] 1 each PO BID 08/30/20 [History] Past Medical History Cardiovascular History: Reports: Hypertension Respiratory History: Reports: Asthma Gastrointestinal History: Reports: Bowel Obstruction, Chronic Diarrhea Other Gastrointestinal History: hx of Gastric Bypass; wt loss 175 pounds Genitourinary History: Reports: Renal Calculus Musculoskeletal History: Reports: Fracture Neurological History: Reports: Concussion, Head Trauma, Speech Problems, Vertigo Psychiatric History: Reports: Addiction, Anxiety, Eating Disorders, Psych Hospitalization(s), PTSD, Suicide Attempt, Suicidal Ideation Other Psychiatric History: night terrors, past suicide attempt Endocrine/Metabolic History: Reports: Obesity/BMI 30+ Hematologic History: Reports: B12 Deficiency - Infectious Disease History Infectious Disease History: Reports: Chicken Pox - Past Surgical History HEENT Surgical History: Reports: Adenoidectomy, Tonsillectomy Other HEENT Surgeries/Procedures: [place] tooth pulled 10/10/14 GI Surgical History: Reports: Bariatric Procedure, Other (See Below) Other GI Surgeries/Procedures: revision 2016 in [facility] Male Surgical History: Reports: Lithotripsy ([facility]), Renal Calculus Social & Family History - Family History Family Medical History: No Pertinent Family History Oncologic: Reports: Colon - Caffeine Use Caffeine Use: Reports: None - Living Situation & Occupation Living situation: Reports: Single, Other Occupation: Employed ED ROS GENERAL - Review of Systems Review Of Systems: Unable To Obtain Reason Not Obtained: Patient is unresponsive ED EXAM, GENERAL - Physical Exam Exam: See Below Exam Limited By: Altered Mental Status (Patient responds to painful stimuli) General Appearance: Obtunded Eye Exam: Bilateral Eye: PERRL Throat/Mouth: Normal Oropharynx Head: Atraumatic, Normocephalic Neck: Normal Inspection Respiratory/Chest: No Respiratory Distress, Lungs Clear, Normal Breath Sounds Cardiovascular: Normal Peripheral Pulses, Regular Rate, Rhythm, Tachycardia Peripheral Pulses: 2+: Radial (L), Radial (R), Posterior Tibial (L), Posterior Tibial (R) GI/Abdominal: Normal Bowel Sounds Extremities: Normal Inspection Neurological: Other (Patient responds to painful stimuli, GCS of 8) Skin Exam: Warm, Dry Lymphatic: No Adenopathy ED GENERAL MEDICAL PROCEDURES - Endotracheal Intubation Time of Intubation: 21:30 ET Intubation Indication: Airway Protection Preparation: Suction, Balloon Tested, BVM Set Up, Difficult Airway Equip Pre-Oxygenation: Assisted with BVM, 100% FiO2 Anesthesia Meds: Etomidate, Rocuronium Placement: Orotracheal, Cuffed Cords Visualized: Yes ETT Size In mm: 8.5 (24 cm at the teeth) Number of Attempts: 1 Confirmed By: CO2 Indicator, Bilateral Breath Sounds, Chest Xray Tube Secured By: By Provider #1 Interpretation EKG Date: 09/01/20 Time: 21:17 Rhythm: NSR Rate (Beats/Min): 99 [place]: Normal P-Wave: Present QRS: Normal ST-T: Normal QT: Normal Comparison: NA - No Prior EKG Course - Vital Signs Last Recorded V/S: Last Vital Signs Temp 35.5 C L 09/01/20 21:15 Pulse 103 H 09/01/20 21:26 Resp 22 H 09/01/20 21:26 BP 115/71 09/01/20 21:26 Pulse Ox 93 L 09/01/20 21:15 - Orders/Labs/Meds Orders: Active Orders 24 hr Category Date Time Status Ledezma Catheter Insertion [Insert Urinary Catheter] [OM. Care 09/01/20 21:30 Ordered PC] Q24H Urinary Catheter Assessment [RC] ASDIRECTED Care 09/01/20 21:24 Active Chest 1V Frontal [CR] Stat Exams 09/01/20 21:54 Ordered Chest 1V Frontal [CR] Stat Exams 09/01/20 21:55 Ordered Chest 1V Frontal [CR] Stat Exams 09/01/20 21:56 Ordered Sodium Chloride 0.9% [Saline Flush] Med 09/01/20 21:23 Active 10 ml FLUSH ASDIRECTED PRN Saline Lock Insert [OM.PC] Routine Oth 09/01/20 21:23 Ordered Medication Orders Sodium Chloride (Sodium Chloride 0.9% 10 Ml Syringe) 10 ml FLUSH ASDIRECTED PRN PRN Reason: Keep Vein Open Labs: Laboratory Tests 09/01/20 Range/Units 21:43 Puncture Site Rt.brachial ABG pH 7.407 (7.350-7.450) ABG pCO2 37.9 (35.0-42.0) mmHg ABG pO2 299.0 H (75.0-100.0) mmHg ABG HCO3 23.4 (22.0-26.0) mmol/L ABG Total CO2 19.7 L (23.0-27.0) mmol/L ABG O2 Saturation 97.9 (95.0-98.0) % ABG O2 Content 23.1 H (15.0-23.0) %vol ABG Base Excess -0.5 mm/L ABG Hemoglobin 16.9 (13.5-18.0) g/dL ABG Oxyhemoglobin 94.4 % ABG Carboxyhemoglobin 1.4 (0.0-1.6) % ABG Methemoglobin 2.2 % Dejan Test TNP O2 Delivery Device Resuscitation bag Oxygen Flow Rate 15.0 L Meds: Medications Generic Name Dose Route Start Last Admin Trade Name Freq PRN Reason Stop Dose Admin Sodium Chloride 10 ml 09/01/20 21:23 Sodium Chloride 0.9% 10 Ml Syringe FLUSH ASDIRECTED PRN Keep Vein Open Discontinued Medications Generic Name Dose Route Start Last Admin Trade Name Freq PRN Reason Stop Dose Admin Etomidate 30 mg 09/01/20 21:21 Etomidate 2 Mg/Ml 10 Ml Sdv IVPUSH 09/01/20 21:22 ONETIME ONE Etomidate Confirm 09/01/20 21:26 Etomidate 2 Mg/Ml 10 Ml Sdv Administered 09/01/20 21:27 Dose 20 mg .ROUTE .STK-MED ONE Propofol Confirm 09/01/20 21:40 Diprivan 100 Ml Administered 09/01/20 21:41 Dose 100 mls @ as directed .ROUTE .STK-MED ONE Rocuronium [place] 150 mg 09/01/20 21:21 Rocuronium 50 Mg/5 Ml Vial IVPUSH 09/01/20 21:22 ONETIME ONE Rocuronium [place] Confirm 09/01/20 21:23 Rocuronium 50 Mg/5 Ml Vial Administered 09/01/20 21:24 Dose 150 mg .ROUTE .STK-MED ONE - Re-Assessments/Exams Free Text/Narrative Re-Assessment/Exam: 09/01/20 21:49 both presented to the ED with a collapse outside of the emergency room. He was brought back after rapid response. He had tenuous response to painful stimuli and was borderline protecting his airway so we proceeded to RSI him and support him through mechanical ventilation. The patient underwent RSI with 30 mg of etomidate and 150 mg of rocuronium. He was successfully intubated with an 8.5 endotracheal tube at 24 cm at the teeth. We continue to ventilate him using bag valve. Propofol will be titrated then to maintain his sedation. I discussed the case with Dr. Phillips from the ICU at [facility] who accepts her in transfer. We have no ability to not only assess but manage this patient here with the loss of our lab analyzer function. 09/01/20 21:58 reviewed the patient's arterial blood gas while being bagged at an FiO2 of 100%. His pH is 7.40, PCO2 of 37.9, PO2 of 299, bicarbonate of 23.4, and a hemoglobin of 16.9. His chest x-ray originally showed the tip of the ET tube in the left main bronchus. The tube was withdrawn approximately 3 cm and reimaging showed the tube still within the kavin. The ET tube was drawn back another centimeter and now is positioned about 1 to 2 cm above the kavin. Departure - Departure Time of Disposition: 21:45 Disposition: DC/Tfer to [facility] 02 Clinical Impression: Unresponsiveness, Alcohol ingestion, Methamphetamine use Nortriptyline overdose of undetermined intent Qualifiers: Encounter type: initial encounter Qualified Code(s): T43.014A - Poisoning by tricyclic antidepressants, undetermined, initial encounter - Discharge Information Forms: ED Department Discharge Sepsis Event Note (ED) - Focused Exam Vital Signs: Vital Signs Temp Pulse Resp BP Pulse Ox 09/01/20 21:26 103 H 22 H 115/71 09/01/20 21:15 35.5 C L 96 15 188/163 H 93 L - My Orders Last 24 Hours: My Active Orders 09/01/20 21:23 Sodium Chloride 0.9% [Saline Flush] 10 ml FLUSH ASDIRECTED PRN Saline Lock Insert [OM.PC] Routine 09/01/20 21:24 Urinary Catheter Assessment [RC] ASDIRECTED 09/01/20 21:30 Ledezma Catheter Insertion [Insert Urinary Catheter] [OM.PC] Q24H 09/01/20 21:54 Chest 1V Frontal [CR] Stat 09/01/20 21:55 Chest 1V Frontal [CR] Stat 09/01/20 21:56 Chest 1V Frontal [CR] Stat - Assessment/Plan Last 24 Hours: My Active Orders 09/01/20 21:23 Sodium Chloride 0.9% [Saline Flush] 10 ml FLUSH ASDIRECTED PRN Saline Lock Insert [OM.PC] Routine 09/01/20 21:24 Urinary Catheter Assessment [RC] ASDIRECTED 09/01/20 21:30 Ledezma Catheter Insertion [Insert Urinary Catheter] [OM.PC] Q24H 09/01/20 21:54 Chest 1V Frontal [CR] Stat 09/01/20 21:55 Chest 1V Frontal [CR] Stat 09/01/20 21:56 Chest 1V Frontal [CR] Stat
[2020-09-01 22:10] VITALS: PULSE 96
[2020-09-01 22:11] VITALS: BP 112/71
[2020-09-02] MEDS ORDERED: propofoL 100 ML IV SCH (01:45)
--- NOTE | 2020-09-04 09:53 | CR ---
CHEST: Portable 09/01/2020 at 9:46 PM CLINICAL HISTORY:ET tube placement COMPARISON:1 minute earlier FINDINGS: Endotracheal tube is in the distal trachea approximately 1 cm from the kavin. Lungs appear well aerated. Heart size is normal. Impression: Endotracheal tube in the distal trachea approximately 1 cm from the kavin.
--- NOTE | 2020-09-04 09:54 | CR ---
CHEST: Portable 09/01/2020 at 945 CLINICAL HISTORY:Endotracheal tube position COMPARISON:None FINDINGS: Endotracheal tube is in the origin of the right mainstem bronchus. Lungs are well aerated. Heart size is normal Impression: ET tube in proximal right mainstem bronchus.
--- NOTE | 2020-09-04 09:55 | CR ---
CHEST: Portable chest 09/01/2020 at 9:47 PM CLINICAL HISTORY:ET tube placement COMPARISON:Earlier studies FINDINGS: Endotracheal tube is been withdrawn into the distal third of the trachea. It is approximately 2 cm from the kavin. Lungs appear well-aerated. Impression: ET tube in distal third of the trachea
== END 2020-09-01 22:36 ==
LOC: JP.ED 21:12
DX: T43.014A Poisoning by tricyclic antidepressants, undetermined, initial encounter (principal); F10.129 Alcohol abuse with intoxication, unspecified; F15.929 Other stimulant use, unspecified with intoxication, unspecified; R40.4 Transient alteration of awareness
CPT/HCPCS: 31500; 36600; 51702; 71045; 71045-26; 82803; 82947; 93010; 96365; 99285-25; 99291; J2704; J3490

== ENCOUNTER 2021-03-24 14:11 | Emergency (ER) | payer MEDICAID ==
[2021-03-24 14:40] VITALS: BP 122/74; PULSE 91
== END 2021-03-24 15:29 | disposition home or self-care (01) ==
LOC: JP.ED 14:11
DX: S01.511A Laceration without foreign body of lip, initial encounter (principal); I10 Essential (primary) hypertension; J45.909 Unspecified asthma, uncomplicated; E66.9 Obesity, unspecified; Z68.28 Body mass index [BMI] 28.0-28.9, adult; Y04.0XXA Assault by unarmed brawl or fight, initial encounter
CPT/HCPCS: 12011; 99282-25; 99284

== ENCOUNTER 2022-08-10 21:35 | Emergency (ER) | payer MEDICAID ==
[2022-08-10] MEDS ORDERED: Ondansetron 4 MG/2 ML SDV IVPUSH ONE (21:40)
[2022-08-10] MEDS ORDERED: Sodium Chloride 0.9% 1,000 ML IV SCH (21:45)
[2022-08-10 21:47] LABS: BASOPHILS ABSOLUTE AUTO 0.09 K/uL (0.00-0.10); BASOPHILS PERCENT AUTO 0.6 % (0.1-1.3); EOSINOPHILS ABSOLUTE AUTO 0.09 K/uL (0.00-0.40); EOSINOPHILS PERCENT AUTO 0.6 % (0.0-5.4); HEMATOCRIT 48.4 % (38.4-49.7); HEMOGLOBIN 16.8 g/dL (12.9-16.9); IMMATURE GRAN ABSOLUTE AUTO 0.08 K/uL (0.00-0.23); IMMATURE GRAN PERCENT AUTO 0.6 % (0.0-0.7); LYMPHOCYTES ABSOLUTE AUTO 4.07 K/uL (0.8-3.3); LYMPHOCYTES PERCENT AUTO 28.2 % (11.4-47.7); MEAN CORPUSCULAR HEMOGLOBIN 30.1 pg (31.6-35.5); MEAN CORPUSCULAR HGB CONC 34.7 g/dL (31.6-35.5); MEAN CORPUSCULAR VOLUME 86.7 fL (81.4-99.0); MONOCYTES ABSOLUTE AUTO 0.92 K/uL (0.20-0.90); MONOCYTES PERCENT AUTO 6.4 % (3.3-12.6); NEUTROPHILS PERCENT AUTO 63.6 % (40.0-78.1); PLATELET COUNT,PLT 486 K/uL (130-375); RED BLOOD CELL COUNT 5.58 M/uL (4.14-5.76); WHITE BLOOD CELL COUNT,WBC 14.5 K/uL (3.2-11.0)
[2022-08-10 21:56] LABS: ALANINE AMINOTRANSFERASE,ALT 35 U/L (12-78); ALKALINE PHOSPHATASE 208 U/L (46-116); ANION GAP 19.2 mmol/L (5.0-14.0); ASPARTATE AMNIOTRANSFERASE,AST 42 U/L (15-37); BILIRUBIN TOTAL 0.4 mg/dL (0.2-1.0); BLOOD UREA NITROGEN,BUN 13 mg/dL (7-18); CALCIUM 8.9 mg/dL (8.5-10.1); CARBON DIOXIDE,CO2 21 mmol/L (21-32); CHLORIDE,CL 100 mmol/L (100-108); CREATININE 1.3 mg/dL (0.8-1.3); ESTIMATED GFR 73 mL/min (>60); GLUCOSE RANDOM 150 mg/dL (74-106); LIPASE 77 U/L (73-393); POTASSIUM,K 4.2 mmol/L (3.6-5.2); PROTEIN TOTAL,TP 7.9 g/dL (6.4-8.2); SODIUM,NA 140 mmol/L (140-148)
[2022-08-10 22:13] LABS: AMPHETAMINES SCREEN, URINE NEGATIVE (NEGATIVE); BARBITURATE SCREEN,URINE NEGATIVE (NEGATIVE); BENZODIAZEPINES SCREEN,URINE NEGATIVE (NEGATIVE); METHADONE SCREEN, URINE NEGATIVE (NEGATIVE); METHAMPHETAMINES SCREEN, URINE NEGATIVE (NEGATIVE); OXYCODONE SCREEN,URINE NEGATIVE (NEGATIVE); PROPOXYPHENE SCREEN,URINE NEGATIVE (NEGATIVE); THC SCREEN,URINE 50 NG/ML NEGATIVE (NEGATIVE)
[2022-08-10 23:05] VITALS: BP 132/90; PULSE 102
== END 2022-08-10 23:34 | disposition other institution (70) ==
LOC: JP.ED 21:35
DX: F10.10 Alcohol abuse, uncomplicated (principal); I10 Essential (primary) hypertension; J45.909 Unspecified asthma, uncomplicated; E66.9 Obesity, unspecified; Z68.34 Body mass index [BMI] 34.0-34.9, adult; Z20.822 Contact with and (suspected) exposure to COVID-19; Y90.0 Blood alcohol level of less than 20 mg/100 ml
CPT/HCPCS: 36415; 80053; 80305; 80307; 83690; 85025; 87635; 96361; 96374; 99285; J2405; J7030; U0002

== ENCOUNTER 2023-01-16 19:17 | Emergency (ER) | payer MEDICAID ==
[2023-01-16] MEDS ORDERED: Multivitamins with Iron/Calcium/Folic Acid/Minerals Tab PO ONE (20:14)
[2023-01-16] MEDS ORDERED: Folic Acid 1 MG Tab PO ONE (20:14)
[2023-01-16] MEDS ORDERED: Thiamine 100 MG Tab PO ONE (20:14)
[2023-01-16 20:22] LABS: BASOPHILS ABSOLUTE AUTO 0.04 K/uL (0.00-0.10); BASOPHILS PERCENT AUTO 0.5 % (0.1-1.3); EOSINOPHILS ABSOLUTE AUTO 0.16 K/uL (0.00-0.40); EOSINOPHILS PERCENT AUTO 1.9 % (0.0-5.4); HEMATOCRIT 45.9 % (38.4-49.7); HEMOGLOBIN 16.1 g/dL (12.9-16.9); IMMATURE GRAN ABSOLUTE AUTO 0.04 K/uL (0.00-0.23); IMMATURE GRAN PERCENT AUTO 0.5 % (0.0-0.7); LYMPHOCYTES ABSOLUTE AUTO 3.09 K/uL (0.8-3.3); LYMPHOCYTES PERCENT AUTO 37.3 % (11.4-47.7); MEAN CORPUSCULAR HEMOGLOBIN 31.4 pg (31.6-35.5); MEAN CORPUSCULAR HGB CONC 35.1 g/dL (31.6-35.5); MEAN CORPUSCULAR VOLUME 89.5 fL (81.4-99.0); MONOCYTES ABSOLUTE AUTO 0.76 K/uL (0.20-0.90); MONOCYTES PERCENT AUTO 9.2 % (3.3-12.6); NEUTROPHILS PERCENT AUTO 50.6 % (40.0-78.1); PLATELET COUNT,PLT 358 K/uL (130-375); RED BLOOD CELL COUNT 5.13 M/uL (4.14-5.76); WHITE BLOOD CELL COUNT,WBC 8.3 K/uL (3.2-11.0)
[2023-01-16 20:29] LABS: AMPHETAMINES SCREEN, URINE NEGATIVE (NEGATIVE); BARBITURATE SCREEN,URINE NEGATIVE (NEGATIVE); BENZODIAZEPINES SCREEN,URINE NEGATIVE (NEGATIVE); METHADONE SCREEN, URINE NEGATIVE (NEGATIVE); METHAMPHETAMINES SCREEN, URINE NEGATIVE (NEGATIVE)
[2023-01-16 20:30] LABS: OXYCODONE SCREEN,URINE NEGATIVE (NEGATIVE); PROPOXYPHENE SCREEN,URINE NEGATIVE (NEGATIVE); THC SCREEN,URINE 50 NG/ML NEGATIVE (NEGATIVE)
[2023-01-16 20:44] LABS: A/G RATIO 1.2 (1.2-2.2); ALANINE AMINOTRANSFERASE,ALT 55 U/L (12-78); ALBUMIN 3.8 g/dL (3.4-5.0); ALKALINE PHOSPHATASE 134 U/L (46-116); ANION GAP 14.1 mmol/L (5.0-14.0); ASPARTATE AMNIOTRANSFERASE,AST 72 U/L (15-37); BILIRUBIN TOTAL 0.4 mg/dL (0.2-1.0); BLOOD UREA NITROGEN,BUN 11 mg/dL (7-18); CALCIUM 8.4 mg/dL (8.5-10.1); CARBON DIOXIDE,CO2 26 mmol/L (21-32); CHLORIDE,CL 103 mmol/L (100-108); CREATININE 1.3 mg/dL (0.8-1.3); EST CRCL DRUG DOSING (CG) 91.33 mL/min; ESTIMATED GFR 73 mL/min (>60); GLUCOSE RANDOM 113 mg/dL (74-106); POTASSIUM,K 4.1 mmol/L (3.6-5.2); PROTEIN TOTAL,TP 7.1 g/dL (6.4-8.2); SODIUM,NA 143 mmol/L (140-148)
[2023-01-16] MEDS ORDERED: LORazepam 1 MG Tab PO ONE (21:54)
[2023-01-16 22:01] VITALS: BP 121/70; PULSE 106
== END 2023-01-16 22:30 ==
LOC: JP.ED 19:17
DX: F10.129 Alcohol abuse with intoxication, unspecified (principal); F43.10 Post-traumatic stress disorder, unspecified; Z98.84 Bariatric surgery status; I10 Essential (primary) hypertension; E66.9 Obesity, unspecified; Z68.32 Body mass index [BMI] 32.0-32.9, adult
CPT/HCPCS: 36415; 80053; 80305-QW; 80307; 85025; 99284; A9270-GY

== ENCOUNTER 2023-05-22 20:01 | Emergency (ER) | payer MEDICAID ==
[2023-05-22 20:19] LABS: AMPHETAMINES SCREEN, URINE NEGATIVE (NEGATIVE); BARBITURATE SCREEN,URINE NEGATIVE (NEGATIVE); BENZODIAZEPINES SCREEN,URINE NEGATIVE (NEGATIVE); METHADONE SCREEN, URINE NEGATIVE (NEGATIVE); METHAMPHETAMINES SCREEN, URINE NEGATIVE (NEGATIVE); OXYCODONE SCREEN,URINE NEGATIVE (NEGATIVE); PROPOXYPHENE SCREEN,URINE NEGATIVE (NEGATIVE); THC SCREEN,URINE 50 NG/ML NEGATIVE (NEGATIVE)
[2023-05-22 20:28] VITALS: BP 130/88; PULSE 89
== END 2023-05-22 21:05 | disposition other institution (70) ==
LOC: JP.ED 20:01
DX: F10.120 Alcohol abuse with intoxication, uncomplicated (principal); E66.9 Obesity, unspecified; I10 Essential (primary) hypertension; Z79.899 Other long term (current) drug therapy
CPT/HCPCS: 36415; 80305-QW; 80307; 99283; 99284

== ENCOUNTER 2023-06-09 17:32 | Emergency (ER) | payer MEDICAID ==
[2023-06-09 17:46] VITALS: BP 142/93; PULSE 107
[2023-06-09 18:31] LABS: A/G RATIO 1.1 (1.2-2.2); ALANINE AMINOTRANSFERASE,ALT 33 U/L (12-78); ALBUMIN 3.7 g/dL (3.4-5.0); ALKALINE PHOSPHATASE 153 U/L (46-116); ANION GAP 13.6 mmol/L (5.0-14.0); ASPARTATE AMNIOTRANSFERASE,AST 30 U/L (15-37); BILIRUBIN TOTAL 0.4 mg/dL (0.2-1.0); BLOOD UREA NITROGEN,BUN 13 mg/dL (7-18); CALCIUM 8.7 mg/dL (8.5-10.1); CARBON DIOXIDE,CO2 26 mmol/L (21-32); CHLORIDE,CL 104 mmol/L (100-108); CREATININE 0.8 mg/dL (0.8-1.3); EST CRCL DRUG DOSING (CG) 134.65 mL/min; ESTIMATED GFR 117 mL/min (>60); GLUCOSE RANDOM 117 mg/dL (74-106); POTASSIUM,K 3.7 mmol/L (3.6-5.2); SODIUM,NA 144 mmol/L (140-148)
[2023-06-09] MEDS: LORazepam 1 MG Tab PO ONE (18:35)
[2023-06-09 19:00] LABS: AMPHETAMINES SCREEN, URINE NEGATIVE (NEGATIVE); BARBITURATE SCREEN,URINE NEGATIVE (NEGATIVE); BENZODIAZEPINES SCREEN,URINE NEGATIVE (NEGATIVE); METHADONE SCREEN, URINE NEGATIVE (NEGATIVE); METHAMPHETAMINES SCREEN, URINE NEGATIVE (NEGATIVE); OXYCODONE SCREEN,URINE NEGATIVE (NEGATIVE); PROPOXYPHENE SCREEN,URINE NEGATIVE (NEGATIVE); THC SCREEN,URINE 50 NG/ML NEGATIVE (NEGATIVE)
== END 2023-06-09 19:58 | disposition other institution (70) ==
LOC: JP.ED 17:32
DX: F10.139 Alcohol abuse with withdrawal, unspecified (principal); I10 Essential (primary) hypertension; E66.9 Obesity, unspecified; Z79.899 Other long term (current) drug therapy; Z86.19 Personal history of other infectious and parasitic diseases; Z68.33 Body mass index [BMI] 33.0-33.9, adult; Y90.8 Blood alcohol level of 240 mg/100 ml or more
CPT/HCPCS: 36415; 80053; 80305; 80307; 99284; A9270